=== PATIENT | female | born 1960 | race Caucasian/White ===

== ENCOUNTER → 2017-06-25 | Outpatient (CLI) | payer OTHER ==
[2017-06-25] MEDS: BARIUM SULFATE 40% (APPLE) 148 GM PWD. PO (12:42)
== END | disposition home or self-care (01) ==
LOC: RAD 11:30
DX: R13.10 Dysphagia, unspecified (principal); Z86.73 Personal history of transient ischemic attack (TIA), and cerebral infarction without residual deficits
CPT/HCPCS: 74230; 92611-GN

== ENCOUNTER 2017-10-02 17:38 | Inpatient (IN) | payer OTHER ==
[2017-10-02 17:57] LABS: POC GLUCOSE 139 mg/dL (70-99)
[2017-10-02 18:05] LABS: ADD MAN DIFF? NO
[2017-10-02 18:06] LABS: BASO % 1 % (0-3); EOS # 0.2 x10^3/uL (0.0-0.7); EOS % 2 % (0-3); HEMOGLOBIN 13.6 g/dL (12.0-15.5); LYMPH # 3.4 x10^3/uL (1.0-4.8); LYMPH % 44 % (24-48); MEAN CORPUSCULAR HEMOGLOBIN 34 pg (25-35); MEAN CORPUSCULAR HGB CONC 34 g/dL (31-37); MEAN CORPUSCULAR VOLUME 100 fL (79-100); MONO # 0.5 x10^3/uL (0.0-1.1); MONO % 7 % (0-9); NEUT # 3.6 x10^3uL (1.8-7.7); NEUT % 46 % (31-73); PLATELET COUNT 231 x10^3/uL (140-400); RED CELL DISTRIBUTION WIDTH 13.5 % (11.5-14.5); WHITE BLOOD COUNT 7.7 x10^3/uL (4.0-11.0)
[2017-10-02 18:10] LABS: PROTHROMBIN TIME PATIENT 12.6 SEC (11.7-14.0)
[2017-10-02 18:11] LABS: ANION GAP 11 (6-14); BLOOD UREA NITROGEN 7 mg/dL (7-20); BUN/CREATININE RATIO 9 (6-20); CALCIUM 8.8 mg/dL (8.5-10.1); CARBON DIOXIDE 27 mmol/L (21-32); CHLORIDE 105 mmol/L (98-107); CREATININE 0.8 mg/dL (0.6-1.0); GFR 74.2; GLUCOSE 137 mg/dL (70-99); POTASSIUM 3.5 mmol/L (3.5-5.1); SODIUM 143 mmol/L (136-145)
[2017-10-02 18:13] LABS: BILIRUBIN,URINE NEGATIVE (NEG); CLARITY,URINE CLEAR; GLUCOSE,URINE NEGATIVE (NEG); NITRITE,URINE NEGATIVE (NEG); PH,URINE 6.5; PROTEIN,URINE NEGATIVE (NEG-TRACE); UROBILINOGEN,URINE 0.2 mg/dL (0.2 mg/dL)
[2017-10-02 18:17] LABS: ALBUMIN 3.6 g/dL (3.4-5.0); ALBUMIN/GLOBULIN RATIO 1.1 (1.0-1.7); ALK PHOS 106 U/L (46-116); ALT (SGPT) 25 U/L (14-59); AST (SGOT) 21 U/L (15-37); TOTAL BILIRUBIN 0.2 mg/dL (0.2-1.0)
[2017-10-02 18:19] LABS: COLOR,URINE STRAW
[2017-10-02 18:21] LABS: TROPONINI < 0.017 ng/mL (0.000-0.055)
[2017-10-02 18:23] LABS: BACTERIA,URINE MANY /HPF (0-FEW); RBC,URINE RARE /HPF (0-2); SQUAMOUS EPITHELIAL CELL,UR FEW /LPF
[2017-10-02 18:28] LABS: AMPHETAMINE/METHAMPHETAMINE NEG (NEG); BARBITURATES NEG (NEG); BENZODIAZEPINES NEG (NEG); CANNABINOIDS NEG (NEG); COCAINE NEG (NEG); ETHANOL, URINE POS (NEG); METHADONE NEG (NEG); OPIATES NEG (NEG); PHENCYCLIDINE NEG (NEG)
[2017-10-02 18:48] LABS: ETHANOL 317 mg/dL (0-10)
[2017-10-02] MEDS ORDERED: LORazepam 1 MG TABLET PO (23:00)
[2017-10-02] MEDS: IV NORMAL SALINE 1000ML BAG 1,000 ML IV (23:03)
[2017-10-03] MEDS: IV NORMAL SALINE 1000ML BAG 1,000 ML IV (11:56)
[2017-10-03] MEDS: NICOTINE 14MG PATCH. TD (16:08)
[2017-10-03] MEDS: IBUPROFEN 200 MG TABLET. PO (16:09)
[2017-10-03] MEDS: THIAMINE 100 MG TABLET. PO (17:31)
[2017-10-04] MEDS: IV NORMAL SALINE 1000ML BAG 1,000 ML IV ×2 (00:31→12:15)
[2017-10-04] MEDS: NICOTINE 14MG PATCH. TD (08:23)
[2017-10-04] MEDS: THIAMINE 100 MG TABLET. PO (08:24)
[2017-10-04] MEDS: IBUPROFEN 200 MG TABLET. PO (10:13)
[2017-10-04] MEDS: LORazepam 1 MG TABLET PO (11:44)
[2017-10-05] MEDS: IV NORMAL SALINE 1000ML BAG 1,000 ML IV ×2 (04:35→13:15)
[2017-10-05] MEDS: NICOTINE 14MG PATCH. TD (08:26)
[2017-10-05] MEDS: THIAMINE 100 MG TABLET. PO (08:26)
[2017-10-05] MEDS: SERTRALINE 50 MG TABLET. PO (09:00)
[2017-10-05] MEDS ORDERED: [UNRECOGNIZED DRUG - REMARK] PO (10:45)
[2017-10-05] MEDS: PANTOPRAZOLE 40 MG TABLET.DR. PO (12:15)
[2017-10-05] MEDS: LISINOPRIL 20 MG TABLET PO (12:15)
[2017-10-05] MEDS: hydroCHLOROthiazide 25 MG TABLET PO (12:15)
[2017-10-05] MEDS: METOPROLOL TART IMMED RELEASE 50 MG TABLET. PO ×2 (12:16→22:46)
[2017-10-05] MEDS: IBUPROFEN 200 MG TABLET. PO (23:49)
[2017-10-06] MEDS: NICOTINE 14MG PATCH. TD (09:00)
[2017-10-06] MEDS ORDERED: RABEPRAZOLE SODIUM 20 MG PO (09:00)
[2017-10-06] MEDS ORDERED: CETIRIZINE HCL 10 MG TABLET. PO (09:00)
[2017-10-06] MEDS: PANTOPRAZOLE 40 MG TABLET.DR. PO (11:06)
[2017-10-06] MEDS: THIAMINE 100 MG TABLET. PO (11:07)
[2017-10-06] MEDS: SERTRALINE 50 MG TABLET. PO (11:10)
[2017-10-06] MEDS: hydroCHLOROthiazide 25 MG TABLET PO (11:12)
[2017-10-06] MEDS: METOPROLOL TART IMMED RELEASE 50 MG TABLET. PO (11:12)
[2017-10-06] MEDS: LISINOPRIL 20 MG TABLET PO (11:13)
== END 2017-10-06 13:05 | disposition home or self-care (01) | DRG 896 ==
LOC: 6 SOUTH 21:13 → ER 17:38 → 6 SOUTH 19:44
PROVIDERS: Family Medicine
DX: F10.129 Alcohol abuse with intoxication, unspecified (principal); G92 Toxic encephalopathy; I69.351 Hemiplegia and hemiparesis following cerebral infarction affecting right dominant side; R42 Dizziness and giddiness; G93.89 Other specified disorders of brain; F99 Mental disorder, not otherwise specified; Y90.8 Blood alcohol level of 240 mg/100 ml or more; Z79.899 Other long term (current) drug therapy; Z79.82 Long term (current) use of aspirin
CPT/HCPCS: 36415; 70450; 71045; 80053; 80307; 81001; 82962; 84484; 85025; 85610; 87086; 87186; 93005; 96374; 96376; 99285; 99285-25; G0480; J2060; J7030